=== PATIENT | female | born 2000 | race African-American/Black ===

== ENCOUNTER 2023-11-02 18:19 | Emergency (ER) | payer MEDICAID, OTHER ==
[~2023-11-02] VITALS: Ht 167.6 cm; Wt 79.0 kg
[2023-11-02 18:32] VITALS: BP 140/79; PULSE 99; RESP 18; TEMP 97.9; O2SAT 96
[2023-11-02] MEDS ORDERED: ACETAMINOPHEN 325MG TABLET PO ONE (21:15)
[2023-11-02] MEDS ORDERED: KETOROLAC 60MG/2ML VIAL IM ONE (21:15)
== END 2023-11-03 04:07 | disposition home or self-care (01) ==
LOC: ER 18:19
DX: M25.512 Pain in left shoulder (principal)
CPT/HCPCS: 73030; 99283